=== PATIENT | female | born 1995 | race African-American/Black ===

== ENCOUNTER 2018-05-09 21:57 | Emergency (ER) | payer OTHER ==
[2018-05-10] MEDS: LISSAMINE GREEN OPHTH 1.5 MG STRIP OS (02:05)
[2018-05-10] MEDS: TETRACAINE 0.5% OPHTH SOLN 4ML OS (02:05)
[2018-05-10] MEDS: ERYTHROMYCIN OPHTH OINT OS (02:12)
== END 2018-05-10 02:26 | disposition home or self-care (01) ==
LOC: M ED 21:57
DX: T26.62XA Corrosion of cornea and conjunctival sac, left eye, initial encounter (principal); Y92.89 Other specified places as the place of occurrence of the external cause; F17.210 Nicotine dependence, cigarettes, uncomplicated
CPT/HCPCS: 99283

== ENCOUNTER 2019-04-03 11:25 | Emergency (ER) | payer OTHER ==
[~2019-04-03] VITALS: Ht 165.1 cm; Wt 55.5 kg
[~2019-04-03 11:25] MED LIST: ERYTOIN8 OS
[2019-04-03] MEDS ORDERED: MICO2CRE23 (11:37)
[2019-04-03] MEDS ORDERED: BACL10TA2 (11:37)
[2019-04-03] MEDS ORDERED: IBUP80TA (11:37)
[2019-04-03 16:25] VITALS: BP 111/73
[2019-04-03] MEDS ORDERED: KETO10TAB PO (17:06)
[2019-04-03] MEDS ORDERED: ROBA500T PO (17:06)
== END 2019-04-03 17:15 | disposition home or self-care (01) ==
LOC: M ED 11:25
DX: M54.5 Low back pain (principal); F17.210 Nicotine dependence, cigarettes, uncomplicated

== ENCOUNTER 2020-05-26 15:54 | Emergency (ER) | payer OTHER ==
[~2020-05-26] VITALS: Ht 165.1 cm; Wt 58.0 kg
[~2020-05-26 15:54] MED LIST changes: +BACL10TA2; +IBUP80TA; +KETO10TAB PO; +MICO2CRE23; +ROBA500T PO
[2020-05-26] MEDS ORDERED: FLUORESCEIN OPHTH 1 MG STRIP OS ONE (19:45)
[2020-05-26] MEDS ORDERED: TETRACAINE 0.5% OPHTH SOLN 4ML OS ONE (19:45)
[2020-05-26] MEDS ORDERED: OCUF0.25 OS (20:07)
[2020-05-26 20:20] VITALS: BP 114/56
== END 2020-05-26 20:23 | disposition home or self-care (01) ==
LOC: M ED 15:54
DX: H10.9 Unspecified conjunctivitis (principal); F17.210 Nicotine dependence, cigarettes, uncomplicated

== ENCOUNTER 2021-01-01 11:50 | Emergency (ER) | payer OTHER ==
[~2021-01-01] VITALS: Ht 165.1 cm; Wt 58.4 kg
[~2021-01-01 11:50] MED LIST changes: +OCUF0.25 OS
[2021-01-01 14:47] LABS: MONO REFLEX EBV COMP NEGATIVE (NEGATIVE)
[2021-01-01 15:52] LABS: CHLAMYDIA DNA AMPLIFICATION NEGATIVE (NEGATIVE); GC DNA AMPLIFICATION NEGATIVE (NEGATIVE)
[2021-01-01 16:07] VITALS: BP 131/76
[2021-01-03 13:07] LABS: EBV VIRAL CAPSID AG IgM <36.0 U/mL (0.0-35.9)
== END 2021-01-01 16:08 | disposition home or self-care (01) ==
LOC: M ED 11:50
DX: J02.9 Acute pharyngitis, unspecified (principal); Z20.2 Contact with and (suspected) exposure to infections with a predominantly sexual mode of transmission; F17.200 Nicotine dependence, unspecified, uncomplicated

== ENCOUNTER → 2021-03-05 | Outpatient (CLI) | payer OTHER ==
--- NOTE | 2021-03-05 09:22 | REPPI ---
INDICATION: DIAGNOSTICS NEEDED FOR HISTORY AND PHYSICAL EVALUATION COMPARISON: None. TECHNIQUE: AP, lateral, coned-down views of the lumbar spine. FINDINGS: Three views of the lumbosacral spine demonstrate satisfactory alignment and lordosis without acute fracture / compression injury or subluxation. IMPRESSION: 1. No acute fracture / compression injury or subluxation. 2. Normal age-appropriate lumbosacral spine radiographs. <Electronically signed by Rosales Perez > 03/05/21 0919
--- NOTE | 2021-03-05 09:22 | REPPI ---
INDICATION: DIAGNOSTICS NEEDED FOR HISTORY AND PHYSICAL EVALUATION COMPARISON: None. TECHNIQUE: PA and lateral. FINDINGS: The mediastinum and cardiac silhouette are normal. The lung amor are clear and without acute consolidation, effusion, or pneumothorax. The skeletal structures are intact and normal. IMPRESSION: No acute cardiopulmonary process. <Electronically signed by Rosales Perez > 03/05/21 0918
--- NOTE | 2021-03-05 09:22 | REPPI ---
INDICATION: DIAGNOSTICS NEEDED FOR HISTORY AND PHYSICAL EVALUATION COMPARISON: None. TECHNIQUE: Foley and bilateral lateral views of the nasal bones. FINDINGS: Nasal septum is midline. Nasal bones appear intact without acute fracture or dislocation. Overlying soft tissues are grossly unremarkable. IMPRESSION: No acute nasal bone fracture identified. <Electronically signed by Rosales Perez > 03/05/21 0918
== END ==
LOC: M PLAIMG 08:50
DX: Z00.00 Encounter for general adult medical examination without abnormal findings (principal)

== ENCOUNTER 2021-04-09 16:45 | Emergency (ER) | payer OTHER ==
[~2021-04-09] VITALS: Ht 165.1 cm; Wt 56.7 kg
[2021-04-09 16:46] VITALS: BP 107/69
== END 2021-04-09 19:21 | disposition left against medical advice (07) ==
LOC: M ED 16:45
DX: Z53.21 Procedure and treatment not carried out due to patient leaving prior to being seen by health care provider (principal)